=== PATIENT | female | born 1945 | race Caucasian/White ===

== ENCOUNTER → 2019-04-01 13:55 | Outpatient (CLI) | payer OTHER, SELFPAY | PROVIDERS: PCP Internal Medicine; Visit Provider Internal Medicine | DX: M85.851 Other specified disorders of bone density and structure, right thigh (principal); Z78.0 Asymptomatic menopausal state; Z82.62 Family history of osteoporosis | CPT/HCPCS: 77080 ==

== ENCOUNTER → 2019-05-07 13:23 | Oncology outpatient (ONC) | payer OTHER, SELFPAY ==
[2019-05-07 13:50] VITALS: BP 128/65; PULSE 52; RESP 16; TEMP 36.7; O2SAT 97
[2019-05-07] MEDS: ZOLEDRONIC ACID 5 MG in SODIUM CHLORIDE 0.9% 100 ML 318.75 ML IV (13:57)
== END ==
LOC: ONC 13:23
PROVIDERS: PCP Internal Medicine; Visit Provider Internal Medicine
DX: M85.80 Other specified disorders of bone density and structure, unspecified site (principal)
CPT/HCPCS: 96365; J3489

== ENCOUNTER 2019-05-27 11:56 | Day surgery (SDC) | payer OTHER, SELFPAY ==
[2019-05-27] VITALS (7 sets, daily range): BP systolic 117–135; BP diastolic 67–78; PULSE 50–60; RESP 10–21; TEMP 36.1–36.8; O2SAT 97–100; BMI 16.5
[2019-05-27] MEDS: SODIUM CHLORIDE 0.9% 1,000 ML 84 ML IV ×2 (13:30→15:50)
--- NOTE | 2019-05-27 15:20 | PM.HP.1 ---
History of Present Illness History of Present Illness Date Patient Seen: 05/27/19 Time Patient Seen: 15:21 Chief complaint: [id number] Narrative: Patient is a 74 year old female who presented for screening colonoscopy. No personal history of polyps. No family history of colon cancer. Patient History Social History household members: spouse Family & Social History Social History: household members spouse Meds Home Medications and Allergies Home Medications Medication Instructions Recorded Confirmed Type Effexor XR 150 mg PO DAILY 05/27/19 05/27/19 History Allergies Allergy/AdvReac Type Severity Reaction Status Date / Time Penicillins [PENICILLINS] Allergy Unknown Unverified 12/18/17 12:18 Review of Systems Review of Systems ROS Unobtainable: All systems reviewed & are unremarkable except as noted in HPI and below Exam Vital Signs (past 8 hours): - 05/27/19 13:05 Temperature 96.9 F L Pulse Rate 50 L Respiratory Rate 10 L Blood Pressure 128/73 Pulse Oximetry 100 Oxygen Delivery Method Room Air Narrative Exam Narrative: No acute distress Const General: cooperative, healthy appearing and comfortable Nutritional Appearance: average body habitus Orientation: alert, awake and oriented x3 HENMT Head: normal to inspection, normocephalic and atraumatic Nose: external nose normal Mouth: oral mucosae normal Resp Effort & Inspection: normal respiratory effort and able to speak in complete sentences Auscultation: clear to auscultation bilaterally Cardio Palpation: normal PMI Rate: regular rate Rhythm: regular rhythm Heart Sounds: S1 normal and S2 normal GI Palpation: soft and No tender Auscultation: normal bowel sounds Extrem General: normal to inspection and no pedal edema Assessment & Plan Assessment & Plan narrative: 1. Average risk colon cancer screening - Colonoscopy today, further recommendations to follow
[2019-05-27] MEDS: MIDAZOLAM 5 MG/5 ML VIAL IV (15:47)
[2019-05-27] MEDS: fentaNYL 250 MCG/5 ML INJ IV (15:49)
--- NOTE | 2019-05-27 15:50 | PM.OP.ENDO ---
Operative Date/Time/Diagnoses Date of procedure: 05/27/19 Time of procedure: 15:26 Pre-op diagnosis: 1. Average risk colon cancer screening Procedure Notes Procedure in detail: Surgeon: Anh Chin DO Procedure: Colonoscopy Preoperative diagnosis: Average risk screening colonoscopy Postoperative diagnosis: 1. Sigmoid and descending colon diverticulosis 2. Mild internal hemorrhoids grade 2 Medications: Conscious sedation using 3 mg IV of Midazolam and 100 mcg IV of Fentanyl Preanesthesia Assessment An H and P was performed/updated and the Px?s ASA class is 2. The procedure was discussed in detail with the patient. The potential risks and complications including infection, bleeding, missed lesions, perforation, need for surgery in case of perforation, prolonged hospital stay, and were explained. A brief question and answer period was allotted and once all questions were answered, informed consent was obtained. The patient was brought back to the procedure room and placed on standard monitoring. The patient?s vital signs were monitored continuously throughout the entire procedure. Prior to starting, a timeout was performed to confirm the patient?s identity, allergies, medications, and procedure. Procedure in detail The patient was placed in left lateral decubitus position and once adequate sedation was obtained a KIERA was performed. The digital rectal examination did not reveal any palpable lesions. The tip of the colonoscope was placed in the anal canal and advanced with some difficulty due to tortuous manual pressure was applied. Patient's position was changed to supine to allow for scope to traverse all the way to the cecum which was identified by the appendiceal orifice and the ileocecal valve. Careful examination of all mejia of the colon was performed with irrigation of any residual stool. The patient tolerated the procedure well and will be brought back to the recovery area to be discharged once criteria are met. The prep was judged to be good/excellent and adequate to identify polyps less than 5 mm. The withdrawal time was 7min. The total physician intraservice time was 24min. Complications There were no complications and estimated blood loss was minimal. Recommendations: Resume previous diet Continue outPx medications Repeat colonoscopy would be in 10 years, however the patient will be over age 82. No recall colonoscopy. An emergency contact number was given to the patient for any complications related to the procedure
--- NOTE | 2019-05-27 17:00 | SUR.PHASEII ---
1630 anxious to go home. VSS, IV dc'd and instructions reviewed. Skin warm and dry, resp even and regular
== END 2019-05-27 16:45 | disposition home or self-care (01) ==
LOC: ENDO 11:58
PROVIDERS: Student in an Organized Health Care Education/Training Program; Family Provider Internal Medicine; PCP Internal Medicine; Visit Provider Internal Medicine Gastroenterology
PROC: 0DJD8ZZ Inspection of Lower Intestinal Tract, Via Natural or Artificial Opening Endoscopic (ICD-10-PCS; CPT 45378; principal; 2019-05-27 14:00)
DX: Z12.11 Encounter for screening for malignant neoplasm of colon (principal); K57.30 Diverticulosis of large intestine without perforation or abscess without bleeding; K64.1 Second degree hemorrhoids
CPT/HCPCS: 45378; J2250; J3010

== ENCOUNTER → 2020-03-22 20:04 | Outpatient (ROUT) | payer MEDICARE, SELFPAY ==
[2020-03-22 20:22] LABS: Add Manual Diff / Slide Review NO; Basophils Absolute Auto 0 /uL (0-100); Basophils Percent Auto 0.6 % (0-2); Eosinophils Absolute Auto 100 /uL (0-450); Eosinophils Percent Auto 1.5 % (2-4); Hemoglobin 13.7 g/dL (12.0-16.0); Lymphocytes Absolute Auto 1300 /uL (1100-4500); Lymphocytes Percent Auto 25.7 % (25-40); Mean Corpuscular HGB Conc 32.7 % (30-36); Mean Corpuscular Hemoglobin 29.8 PG (26-34); Mean Corpuscular Volume 90.9 fL (80-100); Monocytes Absolute Auto 500 /uL (0-900); Monocytes Percent Auto 10.3 % (3-14); Neutrophils Absolute Auto 3200 /uL (1500-7000); Neutrophils Percent Auto 61.9 % (50-75); Platelet Count 216 X10^3/uL (150-400); Red Blood Cell Count 4.62 X10^6/uL (4.0-5.2); Red Cell Distribution Width 13.4 % (11.6-14.8); White Blood Cell Count 5.2 X10^3/uL (4.5-11.0)
[2020-03-22 20:29] LABS: Albumin 4.1 g/dL (3.5-5.0); Albumin Globulin Ratio 1.8 (1.0-2.8); Alkaline Phosphatase 33 U/L (38-126); Aspartate Aminotransferase 22 IU/L (14-36); BUN Creatinine Ratio 26.8 (6-22); Bilirubin Total 0.2 mg/dL (0.2-1.3); Blood Urea Nitrogen 19 mg/dL (7-17); Calcium 9.7 mg/dL (8.4-10.2); Carbon Dioxide 26 mmol/L (22-32); Chloride 107 mmol/L (98-107); Cholesterol 145 mg/dL (140-199); Estimated Glomerular Filt Rate > 60.0 mL/min (>60); Globulin 2.3 g/dL (1.7-4.1); Glucose 82 mg/dL (80-110); HDL Cholesterol 65 mg/dL (40-60); HEMOLYSIS < 15 (0-50); LDL Cholesterol Calculated 69 mg/dL (<100); Potassium 4.4 mmol/L (3.4-5.1); Sodium 139 mmol/L (137-145); Total Protein 6.4 g/dL (6.3-8.2); Triglycerides 55 mg/dL (35-150)
[2020-03-22 20:59] LABS: TSH w/ Reflex to FT4 3.02 uIU/mL (0.47-4.68)
[2020-03-23 14:30] LABS: Alanine Aminotransferase 15 IU/L (<35)
== END ==
PROVIDERS: Family Provider Internal Medicine; PCP Internal Medicine; Visit Provider Internal Medicine
DX: E78.2 Mixed hyperlipidemia (principal); F41.9 Anxiety disorder, unspecified; R53.83 Other fatigue
CPT/HCPCS: 80053; 80061; 84443; 85025

== ENCOUNTER → 2020-09-13 19:00 | Outpatient (ROUT) | payer OTHER, SELFPAY | PROVIDERS: Family Provider Internal Medicine; PCP Internal Medicine; Visit Provider Internal Medicine | DX: R39.9 Unspecified symptoms and signs involving the genitourinary system (principal) | CPT/HCPCS: 87077; 87086; 87147 ==

== ENCOUNTER → 2021-06-08 15:18 | Outpatient (CLI) | payer OTHER, SELFPAY ==
--- NOTE | 2021-06-08 | DI.MRI.S_ITS ---
PROCEDURE: MR HEAD/BRAIN WO/W CON INDICATIONS: Mild cognitive impairment, so stated TECHNIQUE: Noncontrast axial T1 spin echo, axial T2 fast spin echo, sagittal and axial FLAIR, coronal T2 fast spin echo, axial gradient echo, axial diffusion and ADC through the brain. After the administration of contrast, axial and coronal T1 spin echo with fat saturation through the brain. COMPARISON: None. FINDINGS: Image quality: Excellent. CSF spaces: Basal cisterns are patent. No extra-axial fluid collections. Ventricles are normal in size and shape. Brain: No midline shift. No intracranial bleeds or masses. No abnormal intracranial enhancement. There is cerebral volume loss for age. There is periventricular white matter chronic small vessel ischemic change. The brainstem appears normal. Diffusion-weighted images demonstrate no acute ischemic insults. No chronic ischemic insults. Normal intravascular flow voids are present. Skull and face: Calvarial marrow is normal in signal. Orbits appear normal. Sinuses: Sinuses and mastoids appear clear. IMPRESSION: 1. No acute intracranial process. 2. Moderate to severe atrophy and chronic microvascular ischemic changes. Dictated by: Cammy Reis M.D. on 06/08/2021 at 16:46 Approved by: Cammy Reis M.D. on 06/08/2021 at 16:46
== END ==
PROVIDERS: Family Provider Internal Medicine; PCP Internal Medicine; Referring Provider Internal Medicine; Visit Provider Internal Medicine
DX: G31.84 Mild cognitive impairment of uncertain or unknown etiology; G31.9 Degenerative disease of nervous system, unspecified
CPT/HCPCS: 70553

== ENCOUNTER → 2022-02-16 16:02 | Outpatient (CLI) | payer MEDICARE, SELFPAY ==
[2022-02-16 18:12] LABS: Hematocrit 44.9 % (36-46); Hemoglobin 15.1 g/dL (12.0-16.0); Mean Corpuscular HGB Conc 33.7 % (30-36); Mean Corpuscular Hemoglobin 30.2 PG (26-34); Mean Corpuscular Volume 89.8 fL (80-100); Platelet Count 243 X10^3/uL (150-400); Red Cell Distribution Width 13.5 % (11.6-14.8); White Blood Cell Count 8.5 X10^3/uL (4.5-11.0)
[2022-02-16 19:00] LABS: Alanine Aminotransferase 24 IU/L (<35); Albumin 4.3 g/dL (3.5-5.0); Albumin Globulin Ratio 1.4 (1.0-2.8); Alkaline Phosphatase 47 U/L (38-126); Aspartate Aminotransferase 29 IU/L (14-36); BUN Creatinine Ratio 19.7 (6-22); Bilirubin Total 0.4 mg/dL (0.2-1.3); Blood Urea Nitrogen 14 mg/dL (7-17); Calcium 8.9 mg/dL (8.4-10.2); Carbon Dioxide 29 mmol/L (22-32); Chloride 104 mmol/L (98-107); Cholesterol 180 mg/dL (140-199); Estimated Glomerular Filt Rate > 60 mL/min (>60); Glucose 87 mg/dL (80-110); HDL Cholesterol 82 mg/dL (40-60); HEMOLYSIS < 15 (0-50); LDL Cholesterol Calculated 73 mg/dL (<100); Potassium 3.9 mmol/L (3.4-5.1); Sodium 139 mmol/L (137-145); Total Protein 7.3 g/dL (6.3-8.2); Triglycerides 125 mg/dL (35-150)
[2022-02-16 19:29] LABS: TSH w/ Reflex to FT4 4.15 uIU/mL (0.47-4.68)
== END ==
PROVIDERS: Family Provider Internal Medicine; PCP Internal Medicine; Referring Provider Internal Medicine; Visit Provider Internal Medicine
DX: E78.2 Mixed hyperlipidemia (principal); F41.1 Generalized anxiety disorder; M85.89 Other specified disorders of bone density and structure, multiple sites
CPT/HCPCS: 36415; 80053; 80061; 84443; 85027

== ENCOUNTER → 2023-08-23 16:38 | Outpatient (CLI) | payer OTHER, SELFPAY ==
[2023-08-23 21:49] LABS: Influenza A - CEPHEID Flu A NEGATIVE (NEGATIVE); Influenza B - CEPHEID Flu B NEGATIVE (NEGATIVE); Respiratory Syncytial Virus Negative (Negative)
[2023-08-23 21:55] LABS: COVID-19 CEPHEID 4-PLEX PCR POSITIVE (Negative)
== END ==
PROVIDERS: Family Provider Internal Medicine; PCP Internal Medicine; Visit Provider Physician Assistant
DX: R05.1 Acute cough (principal)
CPT/HCPCS: 0241U

== ENCOUNTER → 2023-10-10 10:42 | Outpatient (CLI) | payer OTHER, SELFPAY ==
[2023-10-10 12:10] LABS: Hematocrit 47.1 % (36-46); Hemoglobin 15.6 g/dL (12.0-16.0); Mean Corpuscular HGB Conc 33.2 % (30-36); Mean Corpuscular Hemoglobin 29.8 PG (26-34); Platelet Count 265 X10^3/uL (150-400); Red Blood Cell Count 5.23 X10^6/uL (4.0-5.2); Red Cell Distribution Width 14.2 % (11.6-14.8); White Blood Cell Count 7.8 X10^3/uL (4.5-11.0)
[2023-10-10 12:20] LABS: Alanine Aminotransferase 26 IU/L (<35); Albumin 4.2 g/dL (3.5-5.0); Albumin Globulin Ratio 1.4 (1.0-2.8); Alkaline Phosphatase 43 U/L (38-126); Aspartate Aminotransferase 29 IU/L (14-36); BUN Creatinine Ratio 23.1 (6-22); Bilirubin Total 0.6 mg/dL (0.2-1.3); Blood Urea Nitrogen 18 mg/dL (7-17); Calcium 9.3 mg/dL (8.4-10.2); Carbon Dioxide 28 mmol/L (22-32); Chloride 101 mmol/L (98-107); Cholesterol 176 mg/dL (140-199); Estimated Glomerular Filt Rate > 60 mL/min (>60); Globulin 3.1 g/dL (1.7-4.1); Glucose 93 mg/dL (80-110); HDL Cholesterol 69 mg/dL (40-60); HEMOLYSIS < 15 (0-50); LDL Cholesterol Calculated 84 mg/dL (<100); Sodium 139 mmol/L (137-145); Total Protein 7.3 g/dL (6.3-8.2); Triglycerides 113 mg/dL (35-150)
[2023-10-10 12:50] LABS: TSH w/ Reflex to FT4 3.12 uIU/mL (0.47-4.68)
== END ==
PROVIDERS: Family Provider Internal Medicine; PCP Internal Medicine; Referring Provider Internal Medicine; Visit Provider Internal Medicine
DX: E78.2 Mixed hyperlipidemia (principal); M85.80 Other specified disorders of bone density and structure, unspecified site; G30.9 Alzheimer's disease, unspecified; F02.80 Dementia in other diseases classified elsewhere, unspecified severity, without behavioral disturbance, psychotic disturbance, mood disturbance, and anxiety
CPT/HCPCS: 36415; 80053; 80061; 84443; 85027

== ENCOUNTER → 2023-11-25 11:48 | Outpatient (CLI) | payer OTHER, SELFPAY ==
--- NOTE | 2023-11-25 11:53 | DI.RAD.S_ITS ---
PROCEDURE: XR HIP W PEL IF DONE LT 2V INDICATIONS: left posterior hip MSK pain x 6 months. No trauma. TECHNIQUE: AP pelvis with lateral view(s) of the left hip(s). COMPARISON: [facility], CR, [id number] W PEL IF PERFORMED, 12/11/2016, 10:42. FINDINGS: Bones: No fractures or dislocations. Moderate bilateral hip joint osteoarthritic changes are seen with joint space narrowing, subchondral sclerosis and marginal osteophyte formation. No evidence of avascular necrosis of femoral head. Pelvic ring appears intact. No suspicious bony lesions. Soft tissues: The visualized bowel gas pattern is normal. No suspicious soft tissue calcifications. IMPRESSION: Moderate left hip joint osteoarthritis. No fracture or dislocation. No evidence of avascular necrosis. Dictated by: Kam Espinoza M.D. on 11/25/2023 at 15:57 Approved by: Kam Espinoza M.D. on 11/25/2023 at 15:58
== END ==
PROVIDERS: Family Provider Internal Medicine; PCP Internal Medicine; Referring Provider Physician Assistant Medical; Visit Provider Physician Assistant Medical
DX: S76.012A Strain of muscle, fascia and tendon of left hip, initial encounter (principal); M16.12 Unilateral primary osteoarthritis, left hip; X58.XXXA Exposure to other specified factors, initial encounter
CPT/HCPCS: 73502

== ENCOUNTER → 2024-02-25 10:36 | Outpatient (CLI) | payer OTHER, SELFPAY ==
[2024-02-25 11:46] LABS: Influenza A - CEPHEID Flu A NEGATIVE (NEGATIVE); Influenza B - CEPHEID Flu B NEGATIVE (NEGATIVE); Respiratory Syncytial Virus Negative (Negative)
[2024-02-25 12:14] LABS: COVID-19 CEPHEID 4-PLEX PCR Negative (Negative)
== END ==
PROVIDERS: Family Provider Internal Medicine; PCP Internal Medicine; Visit Provider Physician Assistant Surgical
DX: R50.9 Fever, unspecified (principal)
CPT/HCPCS: 0241U

== ENCOUNTER → 2024-02-25 11:14 | Outpatient (CLI) | payer OTHER, SELFPAY ==
--- NOTE | 2024-02-25 11:16 | DI.RAD.S_ITS ---
PROCEDURE: XR CHEST 2V INDICATIONS: Rhonchi on exam TECHNIQUE: 2 views of the chest were acquired. COMPARISON: None. FINDINGS: Surgical changes and devices: None. Lungs and pleura: Lungs are clear. No pleural effusions or pneumothorax. Mediastinum: Mediastinal contours are normal. Heart size is normal. Bones and chest wall: No suspicious bony abnormalities. Soft tissues appear unremarkable. IMPRESSION: No acute cardiopulmonary abnormality is seen. Dictated by: Lashon Stapleton MD, PhD on 02/25/2024 at 11:36 Approved by: Lashon Stapleton MD, PhD on 02/25/2024 at 11:37
== END ==
PROVIDERS: Family Provider Internal Medicine; PCP Internal Medicine; Referring Provider Physician Assistant Surgical; Visit Provider Physician Assistant Surgical
DX: R09.89 Other specified symptoms and signs involving the circulatory and respiratory systems (principal); R50.9 Fever, unspecified
CPT/HCPCS: 0241U; 71046

== ENCOUNTER 2024-02-27 09:27 | Emergency (ER) | payer OTHER, SELFPAY ==
[2024-02-27] VITALS (10 sets, daily range): BP systolic 130–147; BP diastolic 67–71; PULSE 54–76; RESP 16–19; TEMP 36.8–38.5; O2SAT 95–98
[2024-02-27] MEDS: IBUPROFEN 400 MG TABLET 800 MG PO (09:47)
[2024-02-27 10:50] LABS: Adenovirus Not Detected (Not Detect); B. parapertussis Not Detected (Not Detecte); Bordetella pertussis Not Detected (Not Detect); Chlamydophila pneumoniae Not Detected (Not Detect); Coronavirus 229E Not Detected (Not Detect); Coronavirus HKU1 Not Detected (Not Detect); Coronavirus NL 63 Not Detected (Not Detect); Coronavirus OC43 Not Detected (Not Detect); Human Metapneumovirus Not Detected (Not Detect); Human Rhinovirus/Enterovirus Not Detected (Not Detect); Influenza A Not Detected (Not Detect); Influenza B Not Detected (Not Detect); Mycoplasma pneumoniae Not Detected (Not Detect); Parainfluenza Virus 1 Not Detected (Not Detect); Parainfluenza Virus 2 Not Detected (Not Detect); Parainfluenza Virus 3 Not Detected (Not Detect); Parainfluenza Virus 4 Not Detected (Not Detect); Respiratory Syncytial Virus Not Detected (Not Detect); SARS- CoV-2 Not Detected (Not Detecte)
--- NOTE | 2024-02-27 11:15 | DI.RAD.S_ITS ---
PROCEDURE: XR CHEST 1V INDICATIONS: cough TECHNIQUE: One view of the chest was acquired. COMPARISON: None. FINDINGS: Surgical changes and devices: None. Lungs and pleura: Focal opacity in the right lung base. No pleural effusions or pneumothorax. Mediastinum: Mediastinal contours appear normal. Heart size is normal. Bones and chest wall: No suspicious bony lesions. Overlying soft tissues appear unremarkable. IMPRESSION: Right basilar pneumonia. Dictated by: Lashon Stapleton MD, PhD on 02/27/2024 at 11:55 Approved by: Lashon Stapleton MD, PhD on 02/27/2024 at 11:56
--- NOTE | 2024-02-27 11:19 | ED.URI ---
HPI - URI/Sore Throat General Chief Complaint: Fever Stated Complaint: Fever 103.4F Time Seen by Provider: 02/27/24 09:54 History of Present Illness HPI Narrative: Patient is 79-year-old female with mild memory impairment, hyperlipidemia presenting today with cough and fever. She reports that she has had ongoing symptoms for the last 4 days. She is currently febrile with a temperature of 103?. She had a chest x-ray RSV influenza COVID test were done 2 days ago and were all negative. She has a productive cough but can not quite cough up the phlegm. He continues to drink fluids per the . She has no abdominal pain or chest pain. She does sometimes have shortness of breath. Related Data Previous Rx's Medication Instructions Recorded donepezil 10 mg tablet 10 mg PO BEDTIME #90 tabs 09/12/23 venlafaxine 150 mg 150 mg PO DAILY #90 caps 09/12/23 capsule,extended release 24 hr rosuvastatin 5 mg tablet 5 mg PO DAILY #90 tabs 12/09/23 cefdinir 300 mg capsule 300 mg PO Q12H #10 caps 02/27/24 doxycycline hyclate 100 mg capsule 100 mg PO BID #10 caps 02/27/24 Allergies Allergy/AdvReac Type Severity Reaction Status Date / Time Penicillins [PENICILLINS] Allergy Unknown Verified 02/27/24 09:44 Patient History Medical History Do not resuscitate Alzheimer's dementia Has 2 children Wears glasses Rosacea Migraines Measles Chicken pox Hemorrhoid Mixed hyperlipidemia Osteopenia Generalized anxiety disorder Family History Father History of heart disease Hypertension Hyperlipidemia Mother Cancer Hyperlipidemia Brother History of heart disease Hyperlipidemia Hypertension Grandmother History of heart disease Grandfather History of heart disease Grandmother History of heart disease Social History household members: spouse Smoking Status: Former smoker Smoking Status: Former smoker Exam Initial Vital Signs Initial Vital Signs: Vital Signs Temperature 101.3 F H 02/27/24 09:40 Pulse Rate 72 02/27/24 09:40 Respiratory Rate 19 02/27/24 09:40 Blood Pressure 140/67 02/27/24 09:40 Pulse Oximetry 96 02/27/24 09:40 Oxygen Delivery Method Room Air 06/20/24 09:40 GENERAL: Well-appearing 79-year-old female now clammy HEENT: Head atraumatic,EOMI, pupils reactive, face symmetric, moist mucous membranes CARDIOVASCULAR: Regular rate and rhythm without murmurs, rubs or gallops. RESPIRATORY: Breath sounds equal bilaterally, no wheezes rales or rhonchi. Slight expiratory wheeze ABDOMEN: Soft, nontender. Normoactive bowel sounds all 4 quadrants. No guarding or rebound. EXTREMITIES: Normal range of motion, no clubbing or edema. Neurovascularly intact NEUROLOGICAL: Alert and oriented x4.Normal gait and speech. SKIN: Warm, clammy, no laceration, no petechiae, no rashes or lesions. Scores CURB-65 Confusion: No BUN >19mg/dL (>7mmol/L): No Respiratory rate greater or equal to 30: No SBP <90mmHg or DBP less or equal to 60mmHg: No Age 65 or Older: Yes CURB-65 Total: 1 Score 0-1 Outpatient care, Score 2 Inpt vs. Obs, Score 3 or over Inpt admit with ICU for score of 4-5 Course Orders Ordered: ED Orders 02/27/24 09:49 Respiratory Panel (Film Array) Stat 02/27/24 11:15 Chest [XR chest 1V] Stat 02/27/24 11:20 CBC Auto Diff [Complete Blood Count AUTO DIFF] Stat CMP [Comprehensive Metabolic Panel] Stat Lactate (Lactic Acid) Stat Procalcitonin Stat 02/27/24 12:12 Blood Culture Stat Discontinued Medications Cefdinir (Cefdinir 300 Mg Capsule) 300 mg PO NOW ONE Stop: 02/27/24 12:49 Last Admin: 02/27/24 13:04 Dose: 300 mg Documented By: EVELYN Sodium Chloride (Normal Saline 0.9%) 1,000 mls @ 1,000 mls/hr IV BOLUS ONE Stop: 02/27/24 12:14 Last Infusion: 02/27/24 13:09 Dose: Infused Documented By: Admin: 02/27/24 11:34 Dose: 1,000 mls/hr Documented By: EVELYN Ibuprofen (Ibuprofen 400 Mg Tablet) 800 mg PO NOW ONE Stop: 02/27/24 09:45 Last Admin: 02/27/24 09:47 Dose: 800 mg Documented By: EVELYN Vital Signs Vital signs: Vital Signs - 8 hr 02/27/24 09:40 02/27/24 09:51 02/27/24 09:58 Temperature 101.3 F H Pulse Rate 72 76 71 Respiratory Rate 19 Blood Pressure 140/67 Pulse Oximetry 96 96 96 Oxygen Delivery Method Room Air 02/27/24 09:59 02/27/24 10:00 02/27/24 10:02 Temperature Pulse Rate 73 Respiratory Rate Blood Pressure 147/67 H 139/70 Pulse Oximetry 96 Oxygen Delivery Method 02/27/24 10:02 02/27/24 10:54 02/27/24 11:06 Temperature 99.9 F H 99.9 F H 99.4 F Pulse Rate 72 Respiratory Rate Blood Pressure Pulse Oximetry 95 Oxygen Delivery Method 02/27/24 13:05 02/27/24 13:08 Temperature 98.3 F 98.3 F Pulse Rate 54 L Respiratory Rate 16 Blood Pressure 130/71 Pulse Oximetry 98 Oxygen Delivery Method Room Air MDM - URI/Sore Throat Lab Data 02/27/24 11:20 02/27/24 11:20 Labs: Lab Results 02/27/24 02/27/24 Range/Units 09:49 11:20 WBC 10.1 (4.5-11.0) X10^3/uL RBC 4.89 (4.0-5.2) X10^6/uL Hgb 14.6 (12.0-16.0) g/dL Hct 44.3 (36-46) % MCV 90.6 (80-100) fL MCH 29.9 (26-34) PG MCHC 33.0 (30-36) % RDW 13.8 (11.6-14.8) % Plt Count 219 (150-400) X10^3/uL Neut % (Auto) 85.1 H (50-75) % Lymph % (Auto) 6.5 L (25-40) % [place] % (Auto) 8.1 (3-14) % Eos % (Auto) 0.1 L (2-4) % Baso % (Auto) 0.2 (0-2) % Neut # (Auto) 8600 H (0696-8863) /uL Lymph # (Auto) 700 L (2442-6760) /uL [place] # (Auto) 800 (0-900) /uL Eos # (Auto) 0 (0-450) /uL Baso # (Auto) 0 (0-100) /uL Sodium 132 L (137-145) mmol/L Potassium 4.3 (3.4-5.1) mmol/L Chloride 103 (98-107) mmol/L Carbon Dioxide 24 (22-32) mmol/L BUN 9 (7-17) mg/dL Creatinine 0.66 (0.52-1.04) mg/dL Estimated GFR > 60 (>60) mL/min BUN/Creatinine Ratio 13.6 (6-22) Glucose 112 H (80-110) mg/dL Lactate 1.0 (0.7-2.1) mmol/L Calcium 8.2 L (8.4-10.2) mg/dL Total Bilirubin 0.5 (0.2-1.3) mg/dL AST 64 H (14-36) IU/L ALT 49 H (<35) IU/L Alkaline Phosphatase 95 (38-126) U/L Total Protein 6.5 (6.3-8.2) g/dL Albumin 3.6 (3.5-5.0) g/dL Globulin 2.9 (1.7-4.1) g/dL Albumin/Globulin Ratio 1.2 (1.0-2.8) Procalcitonin 2.11 H (<0.5) ng/mL Chlamy pneumoniae PCR Not detected (Not Detect) Adenovirus (PCR) Not detected (Not Detect) B.parapertussis DNA PCR Not detected (Not Detecte) Coronavirus OC43 (PCR) Not detected (Not Detect) Coronavirus HKU1 (PCR) Not detected (Not Detect) Coronavirus 229E (PCR) Not detected (Not Detect) SARS-CoV-2 (PCR) Not detected (Not Detecte) Coronavirus NL63 (PCR) Not detected (Not Detect) Human Metapneumovir PCR Not detected (Not Detect) Influenza Type A (PCR) Not detected (Not Detect) Influenza Type B (PCR) Not detected (Not Detect) M. pneumoniae (PCR) Not detected (Not Detect) Parainfluenza 1 (PCR) Not detected (Not Detect) Parainfluenza 2 (PCR) Not detected (Not Detect) Parainfluenza 3 (PCR) Not detected (Not Detect) Parainfluenza 4 (PCR) Not detected (Not Detect) RSV (PCR) Not detected (Not Detect) Entero/Rhino (PCR) Not detected (Not Detect) Imaging Data Chest x-ray: Radiologist's Impression: PROCEDURE: XR CHEST 1V INDICATIONS: cough TECHNIQUE: One view of the chest was acquired. COMPARISON: None. FINDINGS: Surgical changes and devices: None. Lungs and pleura: Focal opacity in the right lung base. No pleural effusions or pneumothorax. Mediastinum: Mediastinal contours appear normal. Heart size is normal. Bones and chest wall: No suspicious bony lesions. Overlying soft tissues appear unremarkable. IMPRESSION: Right basilar pneumonia. Dictated by: Lashon Stapleton MD, PhD on 02/27/2024 at 11:55 MDM Narrative Medical decision making narrative: Patient is 79-year-old female history of memory impairment presents today with fever and cough. She does have a temperature of 103? but is otherwise hemodynamically stable. She was hypotensive yesterday at the walk-in clinic of however today no evidence of hypotension or tachycardia. She is given Motrin here for her fever which did help she became clammy and is now afebrile. Respiratory panel is negative for any respiratory virus at which point blood work and chest x-ray were ordered. Blood work has been reviewed no leukocytosis, sodium slightly low 132 creatinine , bilirubin 0.5, lactate 1.0, AST 64, ALT 49 slightly increased from previous previously AST is 29 ALT is 26, procalcitonin 2.1 Chest x-ray reviewed a right lower lobe pneumonia Symptoms correlate with pneumonia with cough fever an upper respiratory like symptoms. Curb 65 score 1 Discharge Plan Departure Patient Disposition: Home Clinical Impression: Pneumonia Instructions: DI for Pneumonia -- Adult Activity Restrictions/Additional Instructions: *You have been diagnosed with pneumonia *What to do: At this time increase fluids as tolerated rest. *Continue to take medications as directed Cefdinir 300 mg twice a day for 5 days Doxycycline 100 mg twice a day for 5 days Tylenol 650 mg every 4-6 hours if needed for fever Motrin 400 mg every 6 hours if needed for fever *Follow up with your primary care provider in 2-3 days or call [phone] *Return to ER if you should have increasing confusion shortness of breath or any new, worsening or concerning symptoms Prescriptions: New cefdinir 300 mg capsule 300 mg PO Q12H Qty: 10 0RF doxycycline hyclate 100 mg capsule 100 mg PO BID Qty: 10 0RF No Action donepezil 10 mg tablet 10 mg PO BEDTIME Qty: 90 3RF venlafaxine 150 mg capsule,extended release 24hr 150 mg PO DAILY Qty: 90 3RF rosuvastatin 5 mg tablet 5 mg PO DAILY Qty: 90 3RF Referrals: Marquez Lauren MD [Primary Care Provider] - Stand Alone Forms: Patient Portal/API
[2024-02-27] MEDS: SODIUM CHLORIDE 0.9% 1,000 ML 1000 ML IV (11:34)
--- NOTE | 2024-02-27 11:35 | PC.NURSE ---
Clear lung sounds bilaterally; strong cough. Managing symptoms at home w/ tyelonal, ibuprofen, and mucinex w/ no relief.
[2024-02-27 11:41] LABS: Add Manual Diff / Slide Review NO; Basophils Absolute Auto 0 /uL (0-100); Basophils Percent Auto 0.2 % (0-2); Eosinophils Absolute Auto 0 /uL (0-450); Eosinophils Percent Auto 0.1 % (2-4); Hematocrit 44.3 % (36-46); Hemoglobin 14.6 g/dL (12.0-16.0); Lymphocytes Absolute Auto 700 /uL (1100-4500); Lymphocytes Percent Auto 6.5 % (25-40); Mean Corpuscular Hemoglobin 29.9 PG (26-34); Mean Corpuscular Volume 90.6 fL (80-100); Monocytes Absolute Auto 800 /uL (0-900); Monocytes Percent Auto 8.1 % (3-14); Neutrophils Absolute Auto 8600 /uL (1500-7000); Neutrophils Percent Auto 85.1 % (50-75); Platelet Count 219 X10^3/uL (150-400); Red Blood Cell Count 4.89 X10^6/uL (4.0-5.2); Red Cell Distribution Width 13.8 % (11.6-14.8); White Blood Cell Count 10.1 X10^3/uL (4.5-11.0)
[2024-02-27 12:02] LABS: Alanine Aminotransferase 49 IU/L (<35); Albumin 3.6 g/dL (3.5-5.0); Albumin Globulin Ratio 1.2 (1.0-2.8); Alkaline Phosphatase 95 U/L (38-126); Aspartate Aminotransferase 64 IU/L (14-36); BUN Creatinine Ratio 13.6 (6-22); Bilirubin Total 0.5 mg/dL (0.2-1.3); Blood Urea Nitrogen 9 mg/dL (7-17); Calcium 8.2 mg/dL (8.4-10.2); Carbon Dioxide 24 mmol/L (22-32); Chloride 103 mmol/L (98-107); Estimated Glomerular Filt Rate > 60 mL/min (>60); Globulin 2.9 g/dL (1.7-4.1); Glucose 112 mg/dL (80-110); HEMOLYSIS 15 (0-50); Potassium 4.3 mmol/L (3.4-5.1); Sodium 132 mmol/L (137-145); Total Protein 6.5 g/dL (6.3-8.2)
[2024-02-27 12:19] LABS: Procalcitonin 2.11 ng/mL (<0.5)
[2024-02-27] MEDS: CEFDINIR 300 MG CAPSULE PO (13:04)
== END 2024-02-27 13:09 | disposition home or self-care (01) ==
PROVIDERS: Emergency Provider Emergency Medicine; Family Provider Internal Medicine; PCP Internal Medicine
DX: J18.9 Pneumonia, unspecified organism (principal); R50.9 Fever, unspecified; Z20.822 Contact with and (suspected) exposure to COVID-19
CPT/HCPCS: 36415; 71045; 80053; 83605; 84145; 85025; 87040; 87633; 96360; 96361; 99284

== ENCOUNTER → 2024-03-11 12:49 | Outpatient (CLI) | payer OTHER, SELFPAY ==
--- NOTE | 2024-03-11 12:50 | DI.RAD.S_ITS ---
PROCEDURE: XR CHEST 2V INDICATIONS: Cough TECHNIQUE: 2 views of the chest were acquired. COMPARISON: [facility], CR, XR CHEST 1V, 02/27/2024, 11:39. FINDINGS: Surgical changes and devices: None. Lungs and pleura: Improved although incompletely resolved right lower lobe opacity. Mediastinum: Mediastinal contours are normal. Heart size is normal. Bones and chest wall: No suspicious bony abnormalities. Soft tissues appear unremarkable. IMPRESSION: Mild residual right lower lobe opacity. Recommend continued follow-up to document resolution. Dictated by: Cammy Reis M.D. on 03/11/2024 at 15:12 Approved by: Cammy Reis M.D. on 03/11/2024 at 15:12
== END ==
PROVIDERS: Family Provider Internal Medicine; PCP Internal Medicine; Referring Provider Nurse Practitioner Family; Visit Provider Nurse Practitioner Family
DX: R05.9 Cough, unspecified (principal)
CPT/HCPCS: 71046

== ENCOUNTER 2024-03-14 10:24 | Emergency (ER) | payer OTHER, SELFPAY ==
[2024-03-14 10:30] VITALS: BP 122/58; PULSE 80; RESP 15; TEMP 37.3; O2SAT 96; BMI 22.6
[2024-03-14 11:49] VITALS: PULSE 86
[2024-03-14 11:50] VITALS: BP 132/63; PULSE 77; O2SAT 96
[2024-03-14 11:52] VITALS: TEMP 37.2
--- NOTE | 2024-03-14 11:52 | ED.URI ---
HPI - URI/Sore Throat <Hector Patel PA-C - Last Filed: 03/14/24 12:08> General Chief Complaint: Upper Respiratory Symptoms Stated Complaint: Pneumonia Time Seen by Provider: 03/14/24 11:51 Source: patient Mode of arrival: Ambulatory History of Present Illness HPI Narrative: This is a 79-year-old female presents to the emergency department due to a continued cough and fever. About 2 weeks ago she was diagnosed with pneumonia and prescribed cefdinir and doxycycline, she then went to the walk-in clinic a couple of days ago due to continued cough and was prescribed a new course of Augmentin. She was 3 days into her a 10 day course of Augmentin. She was coming in because she reports tactile fevers as well as a continued cough. Denies any new symptoms or worsening of the symptoms. Related Data Previous Rx's Medication Instructions Recorded donepezil 10 mg tablet 10 mg PO BEDTIME #90 tabs 09/12/23 venlafaxine 150 mg 150 mg PO DAILY #90 caps 09/12/23 capsule,extended release 24 hr rosuvastatin 5 mg tablet 5 mg PO DAILY #90 tabs 12/09/23 benzonatate 200 mg capsule 200 mg PO BID PRN cough #28 caps 03/11/24 amoxicillin 875 mg-potassium 1 tab PO BID #20 tabs 03/12/24 clavulanate 125 mg tablet codeine 10 mg-guaifenesin 100 mg/5 10 ml PO Q4-6H PRN cough #120 mL 03/12/24 mL oral liquid Allergies Allergy/AdvReac Type Severity Reaction Status Date / Time Penicillins [PENICILLINS] Allergy Unknown Verified 03/14/24 10:30 Review of Systems <Hector Patel PA-C - Last Filed: 03/14/24 12:08> Review of Systems Narrative: GENERAL: Reports fevers Denies chills, fatigue, malaise, , sweats. HEENT: Denies sinus pain, ear pain, sore throat, difficulty swallowing, dizziness. RESPIRATORY: Reports cough Denies dyspnea, , wheezing, hemoptysis, sputum. CARDIOVASCULAR: Denies chest pain, palpitations, orthopnea, edema, GASTROINTESTINAL: Denies nausea, vomiting, abdominal pain, diarrhea, constipation, melena. : Denies dysuria, frequency, incontinence, hematuria, urinary retention. MUSCULOSKELETAL: denies weakness, joint pain, or bony pain SKIN: Denies rash, skin lesions, or other NEUROLOGIC: Denies weakness, headache, numbness, change in speech, confusion, seizures, incoordination. PSYCHIATRIC: No concerning psychosocial issues. 12 point review of systems is negative except for those stated above Patient History <Hector Patel PA-C - Last Filed: 03/14/24 12:08> Medical History Do not resuscitate Alzheimer's dementia Has 2 children Wears glasses Rosacea Migraines Measles Chicken pox Hemorrhoid Mixed hyperlipidemia Osteopenia Generalized anxiety disorder Family History Father History of heart disease Hypertension Hyperlipidemia Mother Cancer Hyperlipidemia Brother History of heart disease Hyperlipidemia Hypertension Grandmother History of heart disease Grandfather History of heart disease Grandmother History of heart disease Social History household members: spouse Smoking Status: Former smoker Smoking Status: Former smoker alcohol intake frequency: holidays/special occasions only Substance Use Type: does not use Exam <Hector Patel PA-C - Last Filed: 03/14/24 12:08> Narrative Exam Narrative: GENERAL: Well-developed patient, in mild distress. HEAD: Atraumatic. Normocephalic. EYES: Pupils equal round and reactive. Extraocular motions intact. No scleral icterus. No injection or drainage. ENT: Nose without bleeding, purulent drainage. Throat without erythema, tonsillar hypertrophy or exudate. Airway patent. NECK: Trachea midline. Non tender EXTREMITIES: No edema or joint tenderness. NEURO: AOx3. SKIN: No rash or erythema of visible areas CARDIOVASCULAR: Regular rate and rhythm without murmurs, gallops, or rubs. RESPIRATORY: Clear to auscultation. Breath sounds equal bilaterally. No wheezes, rales, or rhonchi. GASTROINTESTINAL: Abdomen soft, non-tender, nondistended. BACK: Nontender without deformity or crepitance. No flank tenderness. Initial Vital Signs Initial Vital Signs: Vital Signs Temperature 99.1 F 03/14/24 10:30 Pulse Rate 80 03/14/24 10:30 Respiratory Rate 15 03/14/24 10:30 Blood Pressure 122/58 L 03/14/24 10:30 Pulse Oximetry 96 03/14/24 10:30 Oxygen Delivery Method Room Air 03/14/24 10:30 <DO Malissa Hankins Last Filed: 03/14/24 18:52> Initial Vital Signs Initial Vital Signs: Vital Signs Temperature 99.1 F 03/14/24 10:30 Pulse Rate 80 03/14/24 10:30 Respiratory Rate 15 03/14/24 10:30 Blood Pressure 122/58 L 03/14/24 10:30 Pulse Oximetry 96 03/14/24 10:30 Oxygen Delivery Method Room Air 03/14/24 10:30 Course <LENCHO Juárez Last Filed: 03/14/24 12:08> Vital Signs Vital signs: Vital Signs - 8 hr 03/14/24 11:49 03/14/24 11:50 03/14/24 11:50 Temperature Pulse Rate 86 77 Blood Pressure 132/63 Pulse Oximetry 96 03/14/24 11:52 03/14/24 12:00 03/14/24 12:00 Temperature 98.9 F Pulse Rate 67 Blood Pressure 116/70 Pulse Oximetry 97 <Jill Siegel DO - Last Filed: 03/14/24 18:52> Vital Signs Vital signs: Vital Signs - 8 hr 03/14/24 11:49 03/14/24 11:50 03/14/24 11:50 Temperature Pulse Rate 86 77 Blood Pressure 132/63 Pulse Oximetry 96 03/14/24 11:52 03/14/24 12:00 03/14/24 12:00 Temperature 98.9 F Pulse Rate 67 Blood Pressure 116/70 Pulse Oximetry 97 MDM - URI/Sore Throat <LENCHO Juárez Last Filed: 03/14/24 12:08> MDM Narrative Medical decision making narrative: ED course: This is a 79-year-old female presents to the emergency department due to continued cough and fevers. She was already been prescribed a course of cefdinir and doxycycline which she completed without incident, she was recently prescribed a course of Augmentin 3 days ago and has 7 more days in her course. Recommended she continue to take these medications and take Tylenol as needed for the fevers. Suspect it is too soon in the course for significant improvement of her symptoms. Afebrile and no respiratory distress on exam. CC: Cough Complicating co-morbidities: As below Data collected from: Previous notes Medical records reviewed: Patient was seen in the walk-in clinic 3 days ago for pneumonia. Two weeks prior to that she was diagnosed with pneumonia and was prescribed cefdinir and doxycycline. She was seen in the walk-in clinic due to continued cough. DNR, Alzheimer's dementia, generalized anxiety. Chest x-ray was taken which showed improvement of the pneumonia but still present Augmentin was prescribed azithromycin was not prescribed as it interacts with her Aricept Differential considered, but not limited to: Pneumonia, bronchitis Exam documented above, pertinent findings include: No significant abnormalities Lab Test results independently reviewed as above. Pertinent findings: None obtained Imaging studies independently reviewed: None obtained Scores Used: None MIPS Elements: None Consultations: None Treatments: None Re-evaluations: None Discussion: Discussed plan with the patient was comfortable with the plan Diagnosis: Pneumonia Disposition: see below, along with detailed discharge instructions that have been reviewed with patient as well as indications for ED re-evaluation and additional outpatient follow up Discharge Plan Departure Patient Disposition: Home Clinical Impression: Pneumonia Activity Restrictions/Additional Instructions: Thank you for coming to the [facility] Emergency Department today. Please continue taking the Augmentin that you are prescribed previously. I suspect it is too early in the course for significant improvement. You may use Tylenol as needed for fevers Please return to the emergency department if you develop any significant difficulty breathing, high fevers that do not improve with Tylenol or any other concerning signs or symptoms. I hope you feel better soon. Please follow up with your primary care provider within a week if your symptoms continue. If you do not have a primary care provider please contact the [facility] Resource line at [phone]. They will ask some questions about your medical history and help you get set up with a provider in the community. Prescriptions: No Action benzonatate 200 mg capsule 200 mg PO BID PRN (Reason: cough) Qty: 28 0RF donepezil 10 mg tablet 10 mg PO BEDTIME Qty: 90 3RF venlafaxine 150 mg capsule,extended release 24hr 150 mg PO DAILY Qty: 90 3RF rosuvastatin 5 mg tablet 5 mg PO DAILY Qty: 90 3RF codeine-guaifenesin 10-100 mg/5 mL liquid 10 ml PO Q4-6H PRN (Reason: cough) Qty: 120 0RF amoxicillin-pot clavulanate 875-125 mg tablet 1 tab PO BID Qty: 20 0RF Referrals: Marquez Lauren MD [Primary Care Provider] - Stand Alone Forms: Patient Portal/API ED Sign-out <Jill Seigel DO - Last Filed: 03/14/24 18:52> Cosign ED Attending Carlyleature Attestation: I was immediately available in the department for consultation.
[2024-03-14 12:00] VITALS: BP 116/70; PULSE 67; O2SAT 97
== END 2024-03-14 12:25 | disposition home or self-care (01) ==
PROVIDERS: Emergency Provider Physician Assistant Medical; Family Provider Internal Medicine; PCP Internal Medicine
DX: J18.9 Pneumonia, unspecified organism (principal); Z87.891 Personal history of nicotine dependence
CPT/HCPCS: 99281; 99282

== ENCOUNTER → 2024-03-26 11:45 | Outpatient (CLI) | payer OTHER, SELFPAY ==
--- NOTE | 2024-03-26 11:46 | DI.CT.S_ITS ---
PROCEDURE: CT ANGIO CHEST PE PROTOCOL INDICATIONS: chest pain/rule out PE TECHNIQUE: After the administration of intravenous contrast, 2 mm thick sections acquired from the pulmonary apices to the posterior costophrenic angles. 3-dimensional maximum intensity projection (MIP) coronal and sagittal reformats were then acquired through the thorax. For radiation dose reduction, the following was used: automated exposure control, adjustment of mA and/or kV according to patient size. COMPARISON: None. FINDINGS: Image quality: Diagnostic. Pulmonary arteries: Pulmonary arteries are normal in size, and demonstrate no intraluminal filling defects to suggest central pulmonary embolism. Lower Neck: No enlarged lymph nodes. Thyroid: No thyroid nodules which require sonographic follow up, per consensus guidelines. Axillae: No enlarged lymph nodes. Chest Wall: Unremarkable. Bones: Degenerative changes of the spine. Lungs and Pleura: No pneumothorax or pleural effusions. Mild patchy consolidative opacities within the bilateral lower lobes, right greater than left as well as the posterior right upper lobe. Right basilar atelectasis versus consolidation. Heart: Heart size is normal. Mild coronary artery calcifications. No pericardial effusion. Thoracic Vessels: No aortic aneurysm. Atherosclerotic vascular calcifications. Mediastinum and [place]: No enlarged lymph nodes. Esophagus: No wall thickening. No hiatal hernia. 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 IMPRESSION: No pulmonary embolus. Consolidative opacities, most pronounced in the right lower lobe concerning for infection. 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 Dictated by: Dewayne Leigh M.D. on 03/26/2024 at 13:52 Approved by: Dewayne Leigh M.D. on 03/26/2024 at 13:57
== END ==
PROVIDERS: Family Provider Internal Medicine; PCP Internal Medicine; Referring Provider Internal Medicine; Visit Provider Internal Medicine
DX: J18.9 Pneumonia, unspecified organism (principal); R07.81 Pleurodynia; I25.10 Atherosclerotic heart disease of native coronary artery without angina pectoris
CPT/HCPCS: 71275; Q9967

== ENCOUNTER → 2024-09-04 15:46 | Outpatient (CLI) | payer OTHER, SELFPAY ==
--- NOTE | 2024-09-04 15:48 | DI.RAD.S_ITS ---
PROCEDURE: XR SHOULDER LT MIN 2V INDICATIONS: left shoulder pn/reduce ROM SP fall 7D ago TECHNIQUE: 3 views of the shoulder were acquired. COMPARISON: None. FINDINGS: Bones: No fractures or dislocations. No suspicious bony lesions. Visualized ribs appear intact. Soft tissues: No suspicious soft tissue calcifications. IMPRESSION: No acute bony abnormality. Dictated by: David Gr M.D. on 09/04/2024 at 16:20 Approved by: David Gr M.D. on 09/04/2024 at 16:20
== END ==
PROVIDERS: Family Provider Internal Medicine; PCP Internal Medicine; Referring Provider Student in an Organized Health Care Education/Training Program; Visit Provider Student in an Organized Health Care Education/Training Program
DX: S43.492A Other sprain of left shoulder joint, initial encounter (principal); X58.XXXA Exposure to other specified factors, initial encounter
CPT/HCPCS: 73030

== ENCOUNTER → 2024-10-07 14:11 | Outpatient (CLI) | payer OTHER, SELFPAY ==
[2024-10-07 15:21] LABS: Alanine Aminotransferase 23 IU/L (<35); Albumin 4.5 g/dL (3.5-5.0); Albumin Globulin Ratio 1.8 (1.0-2.8); Alkaline Phosphatase 59 U/L (38-126); Aspartate Aminotransferase 31 IU/L (14-36); BUN Creatinine Ratio 27.5 (6-22); Bilirubin Total 0.2 mg/dL (0.2-1.3); Blood Urea Nitrogen 22 mg/dL (7-17); Calcium 9.8 mg/dL (8.4-10.2); Carbon Dioxide 29 mmol/L (22-32); Chloride 102 mmol/L (98-107); Cholesterol 181 mg/dL (140-199); Estimated Glomerular Filt Rate > 60 mL/min (>60); Globulin 2.5 g/dL (1.7-4.1); Glucose 98 mg/dL (80-110); HDL Cholesterol 85 mg/dL (40-60); HEMOLYSIS < 15 (0-50); LDL Cholesterol Calculated 72 mg/dL (<100); Sodium 138 mmol/L (137-145); Triglycerides 119 mg/dL (35-150)
[2024-10-07 16:14] LABS: Vitamin B12 Reflex MMA if <400 524 pg/mL (239-931)
== END ==
PROVIDERS: Family Provider Internal Medicine; PCP Internal Medicine; Referring Provider Internal Medicine; Visit Provider Internal Medicine
DX: E78.2 Mixed hyperlipidemia (principal); G30.9 Alzheimer's disease, unspecified; F02.80 Dementia in other diseases classified elsewhere, unspecified severity, without behavioral disturbance, psychotic disturbance, mood disturbance, and anxiety; E53.8 Deficiency of other specified B group vitamins
CPT/HCPCS: 36415; 80053; 80061; 82607